=== PATIENT | male | born 1975 | race Hispanic/Latino ===

== ENCOUNTER 2017-08-14 10:10 | Inpatient (IN) | payer SELFPAY ==
[2017-08-14 10:48] LABS: Basophils % (Auto) 0.4 % (0.0-1.8); Eosinophils % (Auto) 0.6 % (0.0-4.3); Hematocrit 45.8 % (35.5-45.6); Hemoglobin 15.7 gm/dl (11.8-15.2); Mean Corpuscular HGB Conc 34 % (32-34); Mean Corpuscular Hemoglobin 33 pg (28-32); Mean Corpuscular Volume 96 fl (84-94); Red Blood Count 4.76 M/mm3 (3.65-5.03); Red Cell Distribution Width 13.6 % (13.2-15.2); White Blood Count 11.3 K/mm3 (4.5-11.0)
[2017-08-14 11:06] LABS: Anion Gap 21 mmol/L; BUN/Creatinine Ratio 18; Blood Urea Nitrogen 9 mg/dL (9-20); Calcium 9.4 mg/dL (8.4-10.2); Carbon Dioxide 25 mmol/L (22-30); Chloride 98.7 mmol/L (98-107); Glucose 174 mg/dL (75-100); Potassium 4.5 mmol/L (3.6-5.0); Sodium 140 mmol/L (137-145)
[2017-08-14 11:34] LABS: Platelet Count 78 K/mm3 (140-440)
[2017-08-14] MEDS ORDERED: MORPHINE IV ONE (22:14)
--- NOTE | 2017-08-14 23:19 | Emergency Department Report ---
ED Chest Pain HPI - General Chief Complaint: Chest Pain Stated Complaint: CHEST PAIN Time Seen by Provider: 08/14/17 22:13 Source: patient Mode of arrival: Ambulatory Limitations: No Limitations - History of Present Illness Initial Comments: Patient is a 42-year-old male past medical history of hypertension and diabetes who presents with chest pain. Patient states that chest pain is a deep type of chest pain located in the middle of his chest and radiates there is a side of his chest. Nothing makes it better or worse. He states is constant and it is a pressure type of pain. He's had a heart attack before in the past. She states that his chest pain feels similar to the heart attack he sat in the past he says the pain is an 8 out of 10. He also feels some slight nausea he has not vomited. Severity scale (0 -10): 7 - Related Data Home Medications Medication Instructions Recorded Confirmed Last Taken metFORMIN [Glucophage] 500 mg PO BID 08/02/14 05/30/16 1 Year Ago Previous Rx's Medication Instructions Recorded Last Taken Type Aspirin [Aspirin BABY CHEW TAB] 81 mg PO QDAY #30 tab.chew 08/03/14 1 Year Ago Rx Lisinopril [Zestril TAB] 5 mg PO QDAY #30 tablet 08/03/14 1 Year Ago Rx Metoprolol [Lopressor TAB] 25 mg PO BID #60 tablet 08/03/14 1 Year Ago Rx Allergies Allergy/AdvReac Type Severity Reaction Status Date / Time No Known Allergies Allergy Verified 10/30/15 23:26 Heart Score - HEART Score History: Moderately suspicious EKG: Non-specific Age: < 45 Risk factors: > 3 risk factors or hx of atherosclerotic disease Troponin: < normal limit HEART Score: 4 ED Review of Systems ROS: Stated complaint: CHEST PAIN Other details as noted in HPI Constitutional: denies: chills, fever Eyes: denies: eye pain, eye discharge, vision change ENT: denies: ear pain, throat pain Respiratory: denies: cough, shortness of breath, wheezing Cardiovascular: chest pain. denies: palpitations Endocrine: no symptoms reported Gastrointestinal: denies: abdominal pain, nausea, diarrhea Genitourinary: denies: urgency, dysuria Musculoskeletal: denies: back pain, joint swelling, arthralgia Skin: denies: rash, lesions Neurological: denies: headache, weakness, paresthesias Psychiatric: denies: anxiety, depression Hematological/Lymphatic: denies: easy bleeding, easy bruising ED Past Medical Hx - Past Medical History Previous Medical History?: Yes Hx Hypertension: Yes (NO MEDS X 1 YEAR) Hx Heart Attack/AMI: Yes Hx Congestive Heart Failure: No Hx Diabetes: Yes (NO MEDS X 1 YEAR) Hx Asthma: No Hx COPD: No - Surgical History Past Surgical History?: Yes Additional Surgical History: Testicular. hernia - Social History Smoking Status: Never Smoker Substance Use Type: Alcohol - Medications Home Medications: Home Medications Medication Instructions Recorded Confirmed Last Taken Type metFORMIN [Glucophage] 500 mg PO BID 08/02/14 05/30/16 1 Year Ago History Aspirin [Aspirin BABY CHEW TAB] 81 mg PO QDAY #30 tab.chew 08/03/14 05/30/16 1 Year Ago Rx Lisinopril [Zestril TAB] 5 mg PO QDAY #30 tablet 08/03/14 05/30/16 1 Year Ago Rx Metoprolol [Lopressor TAB] 25 mg PO BID #60 tablet 08/03/14 05/30/16 1 Year Ago Rx ED Physical Exam - General Limitations: No Limitations General appearance: alert, in no apparent distress - Head Head exam: Present: atraumatic, normocephalic - Eye Eye exam: Present: normal appearance - ENT ENT exam: Present: mucous membranes moist - Neck Neck exam: Present: normal inspection - Respiratory Respiratory exam: Present: normal lung sounds bilaterally. Absent: respiratory distress - Cardiovascular Cardiovascular Exam: Present: regular rate, normal rhythm. Absent: systolic murmur, diastolic murmur, rubs, gallop - GI/Abdominal GI/Abdominal exam: Present: soft, normal bowel sounds - Rectal Rectal exam: Present: deferred - Extremities Exam Extremities exam: Present: normal inspection - Back Exam Back exam: Present: normal inspection - Neurological Exam Neurological exam: Present: alert, oriented X3 - Psychiatric Psychiatric exam: Present: normal affect, normal mood - Skin Skin exam: Present: warm, dry, intact, normal color. Absent: rash ED Course Vital Signs 08/14/17 08/14/17 08/14/17 10:14 21:07 23:30 Temperature 97.8 F 98.4 F Pulse Rate 102 H 82 Respiratory 20 18 20 Rate Blood Pressure 150/85 169/105 O2 Sat by Pulse 99 99 Oximetry LENI score - Leni Score Age > 65: (0) No Aspirin use within the Past 7 Days: (1) Yes 3 or more CAD Risk Factors: (1) Yes 2 or more Angina events in past 24 hrs: (1) Yes Known CAD with more than 50% Stenosis: (0) No Elevated Cardiac Markers: (0) No ST Deviation Greater than 0.5mm: (0) No LENI Score: 3 ED Medical Decision Making - Lab Data Result diagrams: 08/14/17 10:08/14/17 10:25 Lab Results 08/14/17 08/14/17 08/14/17 Range/Units 10:25 10:25 12:49 WBC 11.3 H (4.5-11.0) K/mm3 RBC 4.76 (3.65-5.03) M/mm3 Hgb 15.7 H (11.8-15.2) gm/dl Hct 45.8 H (35.5-45.6) % MCV 96 H (84-94) fl MCH 33 H (28-32) pg MCHC 34 (32-34) % RDW 13.6 (13.2-15.2) % Plt Count 78 L (140-440) K/mm3 Lymph % (Auto) 6.8 L (13.4-35.0) % Phelps % (Auto) 6.4 (0.0-7.3) % Eos % (Auto) 0.6 (0.0-4.3) % Baso % (Auto) 0.4 (0.0-1.8) % Lymph # 0.8 L (1.2-5.4) K/mm3 Phelps # 0.7 (0.0-0.8) K/mm3 Eos # 0.1 (0.0-0.4) K/mm3 Baso # 0.0 (0.0-0.1) K/mm3 Seg Neutrophils % 85.8 H (40.0-70.0) % Seg Neutrophils # 9.7 H (1.8-7.7) K/mm3 Sodium 140 (137-145) mmol/L Potassium 4.5 (3.6-5.0) mmol/L Chloride 98.7 (98-107) mmol/L Carbon Dioxide 25 (22-30) mmol/L Anion Gap 21 mmol/L BUN 9 (9-20) mg/dL Creatinine 0.5 L (0.8-1.5) mg/dL Estimated GFR > 60 ml/min BUN/Creatinine Ratio 18 % Glucose 174 H (75-100) mg/dL Calcium 9.4 (8.4-10.2) mg/dL Troponin T < 0.010 < 0.010 (0.00-0.029) ng/mL 08/14/17 Range/Units 16:09 WBC (4.5-11.0) K/mm3 RBC (3.65-5.03) M/mm3 Hgb (11.8-15.2) gm/dl Hct (35.5-45.6) % MCV (84-94) fl MCH (28-32) pg MCHC (32-34) % RDW (13.2-15.2) % Plt Count (140-440) K/mm3 Lymph % (Auto) (13.4-35.0) % Phelps % (Auto) (0.0-7.3) % Eos % (Auto) (0.0-4.3) % Baso % (Auto) (0.0-1.8) % Lymph # (1.2-5.4) K/mm3 Phelps # (0.0-0.8) K/mm3 Eos # (0.0-0.4) K/mm3 Baso # (0.0-0.1) K/mm3 Seg Neutrophils % (40.0-70.0) % Seg Neutrophils # (1.8-7.7) K/mm3 Sodium (137-145) mmol/L Potassium (3.6-5.0) mmol/L Chloride (98-107) mmol/L Carbon Dioxide (22-30) mmol/L Anion Gap mmol/L BUN (9-20) mg/dL Creatinine (0.8-1.5) mg/dL Estimated GFR ml/min BUN/Creatinine Ratio % Glucose (75-100) mg/dL Calcium (8.4-10.2) mg/dL Troponin T < 0.010 (0.00-0.029) ng/mL - EKG Data -: EKG Interpreted by Il - EKG Data 08/15/17 00:46 EKG shows normal sinus rhythm no T-wave inversion or ST segment elevation - Radiology Data Radiology results: image reviewed Chest x-ray: Shows no acute cardiopulmonary disease - Medical Decision Making Chief medical diagnosis: Non-STEMI Differential medical diagnosis: GERD, unstable angina, hypokalemia, hyperkalemia I will get CBC, CMP, troponin, EKG, chest x-ray, IV pain medication Due to patient having elevated heart score and having prior ND in the past patient has high risk for ACS event. Patient will need to be admitted to the hospital. Discussed plan with patient he agrees with plan. Critical care attestation.: If time is entered above; I have spent that time in minutes in the direct care of this critically ill patient, excluding procedure time. ED Disposition Clinical Impression: Diabetes 1.5, managed as type 2 Hypertension Qualifiers: Hypertension type: essential hypertension Qualified Code(s): I10 - Essential ( primary) hypertension Chest pain Qualifiers: Chest pain type: unspecified Qualified Code(s): R07.9 - Chest pain, unspecified Disposition: OP ADMIT IP TO THIS HOSP Is pt being admited?: Yes Does the pt Need Aspirin: No Condition: Stable
[2017-08-14] MEDS ORDERED: NACL 0.9% 1000 ML 1,000 ML ONE (23:35)
--- NOTE | 2017-08-14 23:59 | History and Physical Report ---
History of Present Illness Date of examination: 08/14/17 History of present illness: 40-year-old man with a history of hypertension, diabetes, coronary artery disease comes emergency room with complaints of chest pain. Pain started last night which he describes as a pressure, constant in nature , no radiation, intensity 5/10 and he cannot identify exacerbating or relieving factors. He admits to shortness of breath, no nausea vomiting, diaphoresis or palpitation. Review Of Systems: Constitutional: no weight loss Ears, eyes, nose, mouth and throat: no nasal congestion, no nasal discharge, no sinus pressure, blurry vision, diplopia Neck: No neck pain or rigidity. Cardiovascular: +chest pain, no orthopnea, palpitations Respiratory: No cough Gastrointestinal: abdominal pain, hematochezia Genitourinary : no dysuria, frequency , hematuria Musculoskeletal: no muscle ache Integumentary: no rash, no pruritis Neurological: no parathesias, focal weakness Endocrine: no cold or heat intolerance, no polyuria or polydipsia Hematologic/Lymphatic: no easy bruising, no easy bleeding, no gland swelling Allergic/Immunologic: no urticaria, no angioedema. PAST SURGICAL HISTORY: Surgery on testicle SOCIAL HISTORY: Smoke a pack a day, drinks 6 pack of beer a day, + cocaine use FAMILY HISTORY: Lymphoma Medications and Allergies Allergies Allergy/AdvReac Type Severity Reaction Status Date / Time No Known Allergies Allergy Verified 10/30/15 23:26 Home Medications Medication Instructions Recorded Confirmed Last Taken Type metFORMIN [Glucophage] 500 mg PO BID 08/02/14 05/30/16 1 Year Ago History Aspirin [Aspirin BABY CHEW TAB] 81 mg PO QDAY #30 tab.chew 08/03/14 05/30/16 1 Year Ago Rx Lisinopril [Zestril TAB] 5 mg PO QDAY #30 tablet 08/03/14 05/30/16 1 Year Ago Rx Metoprolol [Lopressor TAB] 25 mg PO BID #60 tablet 08/03/14 05/30/16 1 Year Ago Rx Exam - Physical Exam Narrative exam: Gen. appearance: Patient lying in bed in no acute distress HEENT: Normocephalic/atraumatic, pupils equal round reactive to light, extra alkaline movement intact, no scleral icterus, no JVD or thyromegaly or nodule, neck is supple, mucous membrane moist, no erythema or exudate Heart: S1-S2, regular rate and rhythm Lungs: Clear to auscultation bilateral breathing comfortable Abdomen: Positive bowel sounds, nontender, nondistended, no organomegaly Extremities: No edema, cyanosis, clubbing Neuro:: Oriented 3 , cranial nerves II-12 intact, speech, motor intact Skin: No rash, nodules, warm dry - Constitutional Vitals: Temp Pulse Resp BP Pulse Ox 98.4 F 82 18 169/105 99 08/14/17 21:07 08/14/17 21:07 08/14/17 21:07 08/14/17 21:07 08/14/17 21:07 Results - Labs CBC & Chem 7: 08/14/17 10:25 08/14/17 10:25 Labs: Abnormal lab results 08/14/17 08/14/17 Range/Units 10:25 10:25 WBC 11.3 H (4.5-11.0) K/mm3 Hgb 15.7 H (11.8-15.2) gm/dl Hct 45.8 H (35.5-45.6) % MCV 96 H (84-94) fl MCH 33 H (28-32) pg Plt Count 78 L (140-440) K/mm3 Lymph % (Auto) 6.8 L (13.4-35.0) % Lymph # 0.8 L (1.2-5.4) K/mm3 Seg Neutrophils % 85.8 H (40.0-70.0) % Seg Neutrophils # 9.7 H (1.8-7.7) K/mm3 Creatinine 0.5 L (0.8-1.5) mg/dL Glucose 174 H (75-100) mg/dL - Imaging and Cardiology EKG: image reviewed Chest x-ray: image reviewed Assessment and Plan Assessment Unstable angina Coronary artery disease Hypertension Diabetes type 2 thrombocytopenia Plan Check cardiac enzymes, obtain stress test Check fingersticks initiated insulin sliding scale Continue appropriate outpatient medications DVT prophylaxis with SCD Plan CT chest, d-dimer positive
[2017-08-15] MEDS ORDERED: PERCOCET 5/325 PO PRN (01:40)
[2017-08-15] MEDS ORDERED: TYLENOL PO PRN (01:40)
[2017-08-15] MEDS ORDERED: MILK OF MAGNESIA PO PRN (01:40)
[2017-08-15] MEDS ORDERED: DULCOLAX PR PRN (01:40)
[2017-08-15] MEDS ORDERED: ZOFRAN IV PRN (01:40)
[2017-08-15] MEDS ORDERED: NACL 0.9% 1000 ML 1,000 ML IV SCH (02:00)
[2017-08-15] MEDS ORDERED: NACL ONE (02:46)
[2017-08-15 03:01] LABS: Creatine Kinase MB 2.1 ng/mL (0.0-4.0)
[2017-08-15 03:02] LABS: Creatine Kinase 96 units/L (55-170)
--- NOTE | 2017-08-15 03:26 | Cat Scan Report ---
FINAL REPORT EXAM: CT ANGIO CHEST HISTORY: CHEST PAIN COMPARISON: None available. TECHNIQUE: Contiguous axial images were obtained. Additional sagittal and coronal reformatted images were obtained. Administration of IV contrast given per institution protocol. Images submitted for interpretation. 100 cc Omnipaque [id number]. FINDINGS: Heart normal in size. Thoracic aorta normal in caliber. The ascending thoracic aorta measures 3.8 centimeters in diameter, upper limits of normal. No dissection or rupture. No pulmonary embolus. No pathologically enlarged intrathoracic or axillary lymph nodes. No focal consolidation or effusion. Tracheobronchial tree is patent. Cirrhotic changes of the liver. The 2 tiny hyperdense nodular foci within the right hepatic lobe measuring 3 and 4 millimeters each. These may reflect areas of tiny calcification. Hypervascular lesions are not excluded. No free fluid in the upper abdomen. Mild degenerative changes of the thoracic spine. IMPRESSION: No pulmonary embolus. Mild atelectasis. No dense consolidation or effusion. Cirrhotic changes of the liver. There are 2 tiny hyperdense lesion right hepatic lobe which could reflect tiny hypervascular lesions or calcifications. These measure 3 and 4 millimeters each. These are indeterminate. Tiny neoplastic nodules or regenerating nodules are not excluded.
--- NOTE | 2017-08-15 07:44 | XRay Report ---
ROUTINE CHEST, TWO VIEWS: Chest pain. PA and lateral views demonstrate the heart and mediastinal contour to be of normal size and shape. The lungs are clear and fully expanded and the soft tissues and bony structures are normal. IMPRESSION: Normal study.
[2017-08-15 08:20] LABS: Creatine Kinase MB 2.1 ng/mL (0.0-4.0)
[2017-08-15 08:21] LABS: Creatine Kinase 121 units/L (55-170)
[2017-08-15] MEDS ORDERED: LEXISCAN IV ONE ×2 (08:46→08:52)
[2017-08-15] MEDS ORDERED: BABY ASPIRIN PO SCH ×2 (10:00)
[2017-08-15] MEDS ORDERED: LOVENOX SUB-Q SCH ×2 (10:00)
[2017-08-15] MEDS ORDERED: ZESTRIL PO SCH (10:00)
--- NOTE | 2017-08-15 11:51 | Discharge Summary ---
Providers - Providers Date of Admission: 08/14/17 23:58 Attending physician: DAWNA MURGUIA MD Primary care physician: [facility] Hospitalization Reason for admission: chest pain Condition: Stable Hospital course: Patient is 40-year-old man with a history of hypertension, diabetes, coronary artery disease comes emergency room with complaints of chest pain. Pain was reproducible,pain started last night which he describes as a pressure, constant in nature , no radiation, intensity 5/10 and he cannot identify exacerbating or relieving factors. He admits to shortness of breath, no nausea vomiting, diaphoresis or palpitation. stress test was negative. initially it was thought as unstbale angina. the patient proceeded to have a stress test that was negative and is table for discharge. I advised the patient about the liver cirrhosis and also with Hepatic lesion and recommended follow up with GI ON Discharge and also serial US every 6 months Discharge diagnosis Atypical chest pain secondary to costochondritis CAD htn Cirrhosis Hepatic lesion Disposition: TO HOME OR SELFCARE Time spent for discharge: 35 mins Core Measure Documentation - Palliative Care Palliative Care/ Comfort Measures: Not Applicable - Core Measures Any of the following diagnoses?: none - VTE Discharge Requirements Deep Vein Thrombosis/Pulmonary Embolism Present on Admission: No Exam - Constitutional Vitals: Temp Pulse Resp BP Pulse Ox 98.5 F 74 24 159/85 94 08/15/17 05:42 08/15/17 08:57 08/15/17 08:57 08/15/17 08:57 08/15/17 08:30 General appearance: Present: no acute distress, well-nourished - EENT Eyes: Present: PERRL ENT: hearing intact - Neck Neck: Present: supple, normal ROM - Respiratory Respiratory effort: normal Respiratory: bilateral: CTA - Cardiovascular Rhythm: regular Heart Sounds: Present: S1 & S2. Absent: systolic murmur, diastolic murmur - Extremities Extremities: no ischemia, pulses intact, pulses symmetrical, No edema Peripheral Pulses: within normal limits - Abdominal General gastrointestinal: Present: soft, non-tender, non-distended, normal bowel sounds Male genitourinary: Present: normal - Integumentary Integumentary: Present: clear, warm, dry - Musculoskeletal Musculoskeletal: strength equal bilaterally - Psychiatric Psychiatric: appropriate mood/affect, intact judgment & insight, memory intact, cooperative - Neurologic Neurologic: CNII-XII intact, moves all extremities, gait normal - Allied Health Allied health notes reviewed: nursing Plan Activity: advance as tolerated Diet: diabetic Special Instructions: record daily weights, record daily BP diary, record blood sugar diary Follow up with: PRIMARY CARE, [Primary Care Provider] - 3-5 Days Prescriptions: Simvastatin [Zocor TAB] 20 mg PO QHS #30 tablet Metoprolol [Lopressor TAB] 25 mg PO BID #60 tablet
[2017-08-15 18:52] VITALS: BP 171/99
--- NOTE | 2017-08-16 01:18 | Treadmill Report ---
Resting myocardial perfusion showed homogeneous radioisotope activity throughout the myocardium. On post-Lexiscan again, there was homogeneous radioisotope activity throughout the myocardium. On gated scan, the left ventricular systolic function was noted to be good with ejection fraction of 69%. There is no evidence of transient ischemic dilatation. IMPRESSION: 1. This test is negative for ischemia. 2. Left ventricular ejection fraction 69%. JOB# [id number] ROMAINE/MELINDA
== END 2017-08-15 18:59 | disposition home or self-care (01) | DRG 313 ==
LOC: ED 10:10 → 4A 23:58 → 3A 08-15 08:53
PROVIDERS: ADMIT Internal Medicine; ATTEND Internal Medicine
DX: R07.9 Chest pain, unspecified (principal); F14.90 Cocaine use, unspecified, uncomplicated; D69.6 Thrombocytopenia, unspecified; I10 Essential (primary) hypertension; E11.9 Type 2 diabetes mellitus without complications; I25.10 Atherosclerotic heart disease of native coronary artery without angina pectoris; F17.210 Nicotine dependence, cigarettes, uncomplicated; Z79.82 Long term (current) use of aspirin; Z80.9 Family history of malignant neoplasm, unspecified; Z79.899 Other long term (current) drug therapy; Z88.8 Allergy status to other drugs, medicaments and biological substances; I25.2 Old myocardial infarction
CPT/HCPCS: 36415; 71020; 71275; 78452; 80048; 82550; 82553; 84484; 85025; 85379; 93005; 93010; 93017; 93970; A9502; J2270; J2785; J7030; Q9967